=== PATIENT | female | born 1970 | race American Indian/Alaskan Native ===

== ENCOUNTER 2019-11-23 22:42 | Emergency (ER) | payer SELFPAY ==
--- NOTE | 2019-11-23 23:04 | Emergency Department Report ---
ED CPR HPI - General Chief Complaint: Cardiac Arrest/CPR Stated Complaint: CARDIAC ARREST Time Seen by Provider: 11/23/19 22:45 Source: EMS Mode of arrival: Stretcher Limitations: Altered Mental Status, Physical Limitation, Other - History of Present Illness Initial Comments: Patient is a 49-year-old female who presents for cardiac arrest. Patient has unknown downtime. Patient's last known well is unknown. Radial report received from EMS prior to arrival. And person report received from EMS once they arrive. Patient has had 2 rounds of epi, chest compressions and patient intubated with a Juan M tube. EMS has not had any signs of life. Unknown past medical history. Per EMS, the patient was found to be unresponsive by the patient's daughter. Complaint: found unresponsive -: unknown Place: home Bystander CPR Performed: No AED Applied by Bystander/Trombone Slide Assembler: No Shock Advised: No Initial Findings in the Field: unresponsive, no respirations, no pulse ROSC in the Field: No Associated Injuries: No Treatments Prior to Arrival: intubation, BMV, chest compressions, epinephrine mgs # - Related Data Allergies Allergy/AdvReac Type Severity Reaction Status Date / Time Unable to Assess Allergy Unverified 11/23/19 22:53 ED Review of Systems ROS: Stated complaint: CARDIAC ARREST Other details as noted in HPI Comment: Unobtainable due to pts medical conditions ED Past Medical Hx - Past Medical History Previous Medical History?: No Additional medical history: Unknown - Surgical History Past Surgical History?: Yes Additional Surgical History: Breast reduction, tummy tuck - Social History Smoking Status: Unknown if ever smoked Substance Use Type: None ED Physical Exam - General Limitations: Altered Mental Status, Physical Limitation, Other General appearance: obtunded - Head Head exam: Present: atraumatic, normocephalic - Eye Eye exam: Present: other (Pupils fixed and dilated) - ENT ENT exam: Present: mucous membranes dry, other (Juan M tube in) - Neck Neck exam: Present: normal inspection - Respiratory Respiratory exam: Present: normal lung sounds bilaterally - Cardiovascular Cardiovascular Exam: Present: other (No heart sounds noted, no pulse). Absent: normal heart sounds - GI/Abdominal GI/Abdominal exam: Present: soft - Extremities Exam Extremities exam: Present: normal inspection (Except for left lower extremity tibial IO) - Neurological Exam Neurological exam: Present: altered - Skin Skin exam: Present: warm, dry, normal color. Absent: rash ED Course - Reevaluation(s) Reevaluation #1: Report received from EMS onto a radio prior to EMS arrival. 11/23/19 22:31 Reevaluation #2: Patient arrived with EMS. Report received from EMS. Unknown past medical history. Patient was found unresponsive by the patient's family. Unknown amount of downtime. CPR initiated by EMS. EMS gave the patient 3 epis placed a left tibial IO and started chest compressions. Patient was intubated with a Jua Nm tube. Patient has bilateral breath sounds. Patient was transferred to our stretcher. CPR was continued. 11/23/19 22:44 Reevaluation #3: Resuscitation efforts were terminated due to no signs of life. Patient has had multiple medications. No pulse noted, no respiratory motion noted, no cardiac motion noted.: Code ran in accordance with ACLS guidelines. See nurse's code note. Family support will be given once the family arrives. 11/23/19 22:51 Reevaluation #4: Family meeting done. Family support given. All questions answered for patient's daughter. 11/23/19 23:36 ED Medical Decision Making - Medical Decision Making Patient is a 49-year-old female that presents emergency room for cardiac arrest. Patient brought in by EMS. Report received from EMS. Patient was given multiple medications and multiple ACLS interventions were done. Resuscitation efforts were eventually terminated due to no signs of life. Patient asystole on the monitor. Code ran in accordance with ACLS guidelines. - Differential Diagnosis Cardiac arrest, [place], PE, Critical Care Time: Yes Critical care time in (mins) excluding proc time.: 35 Critical care attestation.: If time is entered above; I have spent that time in minutes in the direct care of this critically ill patient, excluding procedure time. Critical Care Time: 35 minutes ED Disposition Clinical Impression: Cardiac arrest Disposition: DC-20 Is pt being admited?: No Does the pt Need Aspirin: No Condition: Undetermined Time of Disposition: 23:11
== END 2019-11-24 02:36 ==
LOC: ED 22:45
DX: I46.9 Cardiac arrest, cause unspecified (principal)
CPT/HCPCS: 92950